=== PATIENT | female | born 1955 | race Caucasian/White ===

== ENCOUNTER 2023-02-16 08:25 | Outpatient (REF) | payer MEDICARE, SELFPAY ==
--- NOTE | ~2023-02-16 | MM_ITS ---
EXAMINATION: MM SCREENING DIGITAL BREAST TOMOSYNTHESIS, BILATERAL CLINICAL INFORMATION: Screening. Asymptomatic. The lifetime risk of breast cancer based on the Tyrer-Cuzick Model is 8%. COMPARISON: Outside mammography 03/17/2021, 03/10/2021, 02/25/2020, 01/15/2019 ([facility]). TECHNIQUE: Digital breast tomosynthesis is performed in both the craniocaudal and mediolateral oblique views along with computer-aided detection (CAD). Synthesized 2D images are generated from the tomosynthesis. FINDINGS: The breasts are heterogeneously dense, which may obscure small masses (ACR BI-RADS breast composition Category c). Parenchymal pattern is similar to prior exams and there is no significant mass or developing density or architectural abnormality. There is a biopsy clip marker again seen mid 9:00 left breast. Scattered bilateral benign punctate round calcifications are again seen. The axilla and skin contours are unremarkable. No significant changes from outside studies. MM/MM tomosynthesis screening BI IMPRESSION: No mammographic evidence of malignancy. ASSESSMENT: BI-RADS 2: Benign RECOMMENDATION: Routine annual mammography screening. This patient's information was entered into a reminder system with a target due date for their next mammogram.
== END 2023-02-16 08:26 | disposition home or self-care (01) ==
LOC: HO.MAMMO 08:25
PROVIDERS: Visit Provider Family Medicine
DX: Z12.31 Encounter for screening mammogram for malignant neoplasm of breast (principal)
CPT/HCPCS: 77063; 77067

== ENCOUNTER 2023-02-16 08:57 | Outpatient (REF) | payer MEDICARE, SELFPAY ==
[2023-02-16 11:07] LABS: Alanine Aminotransferase 27 U/L (0-31); Aspartate Amino Transferase 21 U/L (5-31); Blood Urea Nitrogen 16 mg/dL (9-16); Cholesterol 152 mg/dL; Estimated Glomerular Filt Rate > 60; Glucose Fasting 219 mg/dL (60-99); HDL Cholesterol 40 mg/dL; LDL Cholesterol Calculated 69 mg/dl; Triglycerides 215 mg/dL
[2023-02-16 11:14] LABS: Creatinine Urine 53.33 mg/dL; Microalbumin Urine < 5.0 mg/L
[2023-02-16 11:20] LABS: Estimated Average Glucose 186 mg/dL; Hemoglobin A1c % 8.1 %
[2023-02-16 11:28] LABS: Thyroid Stimulating Hormone 1.21 uIU/mL (0.32-4.0)
== END 2023-02-16 08:58 | disposition home or self-care (01) ==
LOC: HO.10HDL 08:57
PROVIDERS: Visit Provider Family Medicine
DX: E11.9 Type 2 diabetes mellitus without complications (principal); E78.00 Pure hypercholesterolemia, unspecified; E03.9 Hypothyroidism, unspecified; Z79.899 Other long term (current) drug therapy
CPT/HCPCS: 36415; 80061; 82043; 82565; 82947; 83036; 84443; 84450; 84460; 84520

== ENCOUNTER 2023-08-06 09:08 | Outpatient (REF) | payer MEDICARE, SELFPAY ==
[2023-08-06 10:46] LABS: Alanine Aminotransferase 26 U/L (0-31); Aspartate Amino Transferase 20 U/L (5-31); Glucose Fasting 216 mg/dL (60-99)
[2023-08-06 10:52] LABS: Estimated Average Glucose 258 mg/dL; Hemoglobin A1c % 10.6 % (<6.0)
[2023-08-06 11:05] LABS: Creatinine Urine 73.96 mg/dL; Microalbum/Creatinine Ratio Ur 6.7 ug/mg cr (<30)
== END 2023-08-06 09:09 | disposition home or self-care (01) ==
LOC: HO.10HDL 09:08
PROVIDERS: Visit Provider Family Medicine
DX: E11.9 Type 2 diabetes mellitus without complications (principal); E78.00 Pure hypercholesterolemia, unspecified; E03.9 Hypothyroidism, unspecified; Z79.899 Other long term (current) drug therapy
CPT/HCPCS: 36415; 82043; 82550; 82570; 82947; 83036; 84450; 84460

== ENCOUNTER 2023-10-25 10:37 | Outpatient (REF) | payer MEDICARE, SELFPAY ==
[2023-10-25 13:32] LABS: Estimated Average Glucose 214 mg/dL; Hemoglobin A1c % 9.1 % (<6.0)
[2023-10-25 13:42] LABS: Glucose Fasting 188 mg/dL (60-99)
[2023-10-25 14:06] LABS: Free T4 (Free Thyroxine) 0.96 ng/dL (0.71-1.85); Thyroid Stimulating Hormone 1.46 uIU/mL (0.32-4.0)
== END 2023-10-25 10:38 | disposition home or self-care (01) ==
LOC: HO.10HDL 10:37
PROVIDERS: Visit Provider Family Medicine
DX: E11.9 Type 2 diabetes mellitus without complications (principal); E03.9 Hypothyroidism, unspecified
CPT/HCPCS: 36415; 82947; 83036; 84439; 84443

== ENCOUNTER 2024-02-22 08:30 | Outpatient (REF) | payer MEDICARE, SELFPAY ==
--- NOTE | ~2024-02-22 | MM_ITS ---
EXAMINATION: MM SCREENING DIGITAL BREAST TOMOSYNTHESIS, BILATERAL CLINICAL INFORMATION: Screening. Asymptomatic. COMPARISON: Mammography: This study is compared with prior exams dating back to 2019. TECHNIQUE: Digital breast tomosynthesis is performed in both the craniocaudal and mediolateral oblique views along with computer-aided detection (CAD). Synthesized 2D images are generated from the tomosynthesis. FINDINGS: The breasts are heterogeneously dense, which may obscure small masses (ACR BI-RADS breast composition Category c). There is a focal asymmetry in the hi 6:00 region of the left breast at a middle depth. Additional mammographic and targeted sonographic imaging of this finding is advised. There is a biopsy tissue marker in the upper inner quadrant of the left breast in the anterior depth. This tissue marker lies approximately 1.5 cm anterosuperior to the focal asymmetry and is unrelated to it. In the right breast, there are no significant masses, abnormal calcifications, or other abnormalities. MM/MM tomosynthesis screening BI IMPRESSION: Focal asymmetry of the left breast warrants additional mammographic and targeted sonographic imaging. No mammographic signs of malignancy right breast. ASSESSMENT: BI-RADS BI-RADS 0 - Incomplete: Needs additional Imaging. RECOMMENDATION: 1. Additional views of the left breast. 2. Targeted ultrasound if warranted after review of the additional views. 3. Radiology department staff will contact the patient for additional imaging. Additional Imaging required This examination should not preclude the clinical evaluation of a suspicious palpable abnormality. This patient's information was entered into a reminder system with a target due date for their next mammogram.
== END 2024-02-22 08:31 | disposition home or self-care (01) ==
LOC: HO.MAMMO 08:30
PROVIDERS: PCP Family Medicine; Visit Provider Family Medicine
DX: Z12.31 Encounter for screening mammogram for malignant neoplasm of breast (principal)
CPT/HCPCS: 77063; 77067

== ENCOUNTER → 2024-02-22 08:45 | Outpatient (BNV) | payer MEDICARE, SELFPAY | PROVIDERS: PCP Family Medicine; Visit Provider Radiology Diagnostic Radiology | DX: Z12.31 Encounter for screening mammogram for malignant neoplasm of breast (principal) | CPT/HCPCS: 77063; 77067 ==

== ENCOUNTER 2024-04-07 09:34 | Outpatient (REF) | payer MEDICARE, SELFPAY ==
[2024-04-07 11:00] LABS: Estimated Average Glucose 189 mg/dL; Hemoglobin A1c % 8.2 % (<6.0)
[2024-04-07 11:16] LABS: Glucose Fasting 142 mg/dL (60-99)
== END 2024-04-07 09:35 | disposition home or self-care (01) ==
LOC: HO.10HDL 09:34
PROVIDERS: Visit Provider Family Medicine
DX: E11.9 Type 2 diabetes mellitus without complications (principal)
CPT/HCPCS: 36415; 82947; 83036

== ENCOUNTER 2024-05-14 13:18 | Outpatient (REF) | payer MEDICARE, SELFPAY ==
--- NOTE | ~2024-05-14 | MM_ITS ---
EXAMINATION: MM DIAGNOSTIC DIGITAL BREAST TOMOSYNTHESIS, LEFT US BREAST LIMITED, LEFT MAMMOGRAPHY: CLINICAL INFORMATION: Diagnostic exam: Focal asymmetry in the left breast 6:00 axis anterior one third seen on screening exam. Unknown, patient has history of remote lumpectomy in the 6:00 region of the left breast anterior one third a long time ago . (Patient is not a good historian). Prior reports from [facility] 02/25/2020 and 01/15/2019 state prior lumpectomy left breast for breast CA in 2014. COMPARISON: Mammography: 02/22/2024, 02/16/2023 ([facility] [place] 02/15/2021, 02/25/2020, 01/15/2019 ([facility]) TECHNIQUE: Digital breast tomosynthesis is performed in the following views: Full field left mediolateral view, and 3-D Spot compression left CC and MLO views. Computer-aided diagnosis was used for this study. FINDINGS: The breasts are heterogeneously dense, which may obscure small masses (ACR BI-RADS breast composition Category c). Persistent area of architectural distortion appears related to the scar marker in the 6:00 axis of the left breast from prior lumpectomy. No central mass or suspicious calcifications associated. This has the appearance stable post benign scarring, unchanged from prior exams. We will evaluate this with ultrasound. There is a Q shaped biopsy clip in the upper inner left breast, middle one third, from prior benign biopsy. There are a few punctate dystrophic appearing calcifications in the retroareolar region, which are loosely grouped and not suspicious. These are stable. No additional suspicious findings in the left breast which can be discriminated from the heterogeneously dense an somewhat nodular breast tissue. ULTRASOUND: CLINICAL INFORMATION: As above. COMPARISON: None relevant. TECHNIQUE: Targeted sonographic evaluation was performed using a high frequency linear transducer. Attention to the 6:00 axis was given left breast. Selected archived documentation. FINDINGS: LEFT BREAST: There is a fairly classic region of linear scarring in the 6:00 axis left breast, anterior one third, leading up to the skin where there is a visible scar. There is no definable mass, cystic abnormality, abnormal color Doppler flow, or abnormal shadowing beyond what would be expected for normal scarring. These findings are benign and stable. MM/MM tomosynthesis added views L IMPRESSION: There are no findings suspicious for malignancy in either breast. There is benign scarring in the 6:00 axis of the left breast, resulting in the stable appearance of architectural distortion which is unchanged from numerous prior exams. This finding is benign. Recommendation resume routine annual screening mammography. OVERALL ASSESSMENT: Mammography: BI-RADS 2 - Benign Findings Ultrasound: BI-RADS 2 - Benign Findings RECOMMENDATION: 1 year F/U This patient's information was entered into a reminder system with a target due date for their next mammogram. Electronically signed by: Ney Lopez MD 05/14/2024 04:43 PM EDT
== END 2024-05-14 13:19 | disposition home or self-care (01) ==
LOC: HO.MAMMO 13:18
PROVIDERS: PCP Family Medicine; Visit Provider Family Medicine
DX: N64.89 Other specified disorders of breast (principal)
CPT/HCPCS: 76642; 77061; 77065

== ENCOUNTER → 2024-05-14 13:30 | Outpatient (BNV) | payer MEDICARE, SELFPAY | PROVIDERS: PCP Family Medicine; Visit Provider Radiology Diagnostic Radiology | DX: N64.89 Other specified disorders of breast (principal) | CPT/HCPCS: 76642; 77065; G0279 ==

== ENCOUNTER 2024-05-26 08:18 | Outpatient (REF) | payer MEDICARE, SELFPAY ==
[2024-05-26 10:51] LABS: Estimated Average Glucose 151 mg/dL; Hemoglobin A1c % 6.9 % (<6.0)
[2024-05-26 11:21] LABS: Creatinine Urine 152.72 mg/dL; Microalbum/Creatinine Ratio Ur 12.4 ug/mg cr (<30)
[2024-05-26 11:28] LABS: Alanine Aminotransferase 20 U/L (0-31); Aspartate Amino Transferase 17 U/L (5-31); Blood Urea Nitrogen 13 mg/dL (9-16); Estimated Glomerular Filt Rate > 60; Glucose Fasting 140 mg/dL (60-99)
[2024-05-26 11:49] LABS: Free T4 (Free Thyroxine) 1.18 ng/dL (0.71-1.85); Thyroid Stimulating Hormone 0.14 uIU/mL (0.32-4.0)
== END 2024-05-26 08:19 | disposition home or self-care (01) ==
LOC: HO.10HDL 08:18
PROVIDERS: Visit Provider Family Medicine
DX: E11.9 Type 2 diabetes mellitus without complications (principal); E03.9 Hypothyroidism, unspecified; E78.00 Pure hypercholesterolemia, unspecified; Z79.899 Other long term (current) drug therapy
CPT/HCPCS: 36415; 82043; 82550; 82565; 82570; 82947; 83036; 84439; 84443; 84450; 84460; 84520

== ENCOUNTER 2024-08-12 11:33 | Outpatient (REF) | payer MEDICARE, SELFPAY ==
[2024-08-12 13:00] LABS: Free T4 (Free Thyroxine) 1.14 ng/dL (0.71-1.85); Thyroid Stimulating Hormone 0.11 uIU/mL (0.32-4.0)
--- OUTSIDE RECORDS SUMMARY | 2024-08-13 20:45 | XMS_ITS | Continuity of Care Document ---
Author Organization [facility] [address] [place] [address] Phone [phone] Care Team Providers Care Ship Unloader Name Role Phone Willi Wei M.D. Care Team Information Receive r [phone] Problems Active Problems Provider Date Obesity FRANK Liu Onset: 2023 Hypothyroidism FRANK Liu Onset: 2023 Pure hypercholesterolemia FRANK Liu Ons et: 02/21/2024 Irritable bowel syndrome FRANK Liu Onse t: 02/21/2024 Polyp of colon FRANK Liu Onset: 2023 Type 2 diabetes mellitus FRANK Liu Onse t: 02/21/2024 Obstructive sleep apnea syndrome FRANK Liu Onset: 02/21/2024 Social History Type Date Description Comments Sex Unknown ETOH Use Rarely consumes alcohol Tobacco Use Start: Unknown End: Unknown Patient is a former smoker Allergies and adverse reactions Active Allergies Criticality Reaction Severity Comments Date Jardiance Unable to assess criticality 02/21/2024 Medications Active Medications SIG Qnty Indications Order ing Provider Date Mounjaro2.5mg/0.5ML Solution Pen-Inject Inject 2.5MG Subcutaneously Once A Week as Directed For 4 Weeks DX: E11.9 2ml E11.9 Deena Herrera M.D. 06/06/2024 Xafjdbtcp8sv Tablets take 1 tablets by mouth every morning 90tabs Deena Herrera M.D. 02/25/2024 Levothyroxine Qjparx210waz Tablets Take 1 Tablet By Mouth Every Day Willi Wei M.D. Atorvastatin Eyffcql56nn Tablets Take 1 Tablet By Mouth Everyday AT Bedtime Willi Wei M.D. Lwfpbgvhichu06qbi Capsules Take 1 Capsule By Mouth Twice A Day FRANK Cavazos Metformin [id number] Tablets Take 1 Tablet By Mouth Twice A Day Willi Wei M.D. Zhwfoigdzulpe064wg Tablets Take 1 Tablet By Mouth Twice A Day Unknown Buspirone CCM86br Tablets Take 1 Tablet By Mouth Twice A Day Unknown Bupropion Hydrochloride ER (XL)150mg Tablets ER 24HR Take 1 Tablet By Mouth Every Day In The Morning Unknown Venlafaxine HCL ER75mg Caps ER 24HR Take 1 Capsule By Mouth Once A Day With 150 MG Capsule For Total Dose = 225 MG. Unknown Venlafaxine HCL XI151ly Caps ER 24HR Take 1 Capsule By Mouth Once A Day With 75 MG Capsule For Total Dose = 225 MG. Unknown Quetiapine Ogconzfs045si Tablets Please See Attached For Detailed Directions Unknown History Medications Ljkxhyis4mk/0.5ML Solution Pen-Inject 1 injection every week as directed 2ml Deena Herrera M.D. 05/27/2024 - 06/12/2024 Mounjaro2.5mg/0.5ML Solution Pen-Inject Inject 2.5MG Subcutaneously Once A Week as Directed For 4 Weeks DX: E11.9 2ml E11.9 Deena Herrera M.D. 02/21/2024 - 05/27/2024 Vital Signs Date Vital Result Comment 06/06/2024 8:04am BP Systolic 100 mmHg BP Diastolic 56 mmHg Heart Rate 88 /min Height 66 inches 5'6 Weight 165.38 lb BMI (Body Mass Index) 26.7 kg/m2 Results Test Acquired Date Facility Test Result H/L Range N ote Laboratory test finding 06/06/2024 Inhouse Hemoglobin A1c 6.5% Glucose Fingerstick 146 Laboratory test finding 02/21/2024 [facility] Mark-65 Autoantibody <5.0 U/mL 0.0-5.0 Laboratory test finding 02/21/2024 Inhouse Hemoglobin A1c 8.6% Glucose Fingerstick 221 Medical Devices Description No Information Available Encounters Type Date Location Provider Dx Diagnosis Office Visit 06/06/2024 8:00a Main Office FRANK Liu E11.9 Type 2 diabet es mellitus without complications Assessments Date Code Description Provider 06/06/2024 E11.9 Type 2 diabetes mellitus wit hout complications FRANK Liu Plan of Treatment Future Appointment(s):* 10/02/2024 8:45 am - FRANK Liu at Main Office 06/06/2024 - FRANK Liu* E11.9 Type 2 diabetes mellitus without complications* New Medication:* Mounjaro 2.5 mg/0.5ML Functional Status Description No Information Available Mental Status Description No Information Available Referrals Description No Information Available
== END 2024-08-12 11:34 | disposition home or self-care (01) ==
LOC: HO.LAB 11:33
PROVIDERS: PCP Family Medicine; Visit Provider Family Medicine
DX: E03.9 Hypothyroidism, unspecified (principal)
CPT/HCPCS: 36415; 84439; 84443

== ENCOUNTER 2025-02-27 08:12 | Outpatient (REF) | payer MEDICARE, SELFPAY ==
--- OUTSIDE RECORDS SUMMARY | 2025-02-27 08:16 | XMS_ITS | Continuity of Care Document ---
Author Organization [facility] [address] [place] [address] Phone [phone] Care Team Providers Care Product Marketing Coordinator Name Role Phone Cade Fuller M.D. Care Team Information Receive r [phone] Problems Active Problems Provider Date Obesity FRANK Liu Onset: 2023 Hypothyroidism FRANK Liu Onset: 2023 Pure hypercholesterolemia FRANK Liu Ons et: 02/21/2024 Irritable bowel syndrome FRANK Liu Onse t: 02/21/2024 Polyp of colon FRANK Liu Onset: 2023 Type 2 diabetes mellitus FRANK Liu Onse t: 02/21/2024 Obstructive sleep apnea syndrome FRANK Liu Onset: 02/21/2024 Social History Type Date Description Comments Sex Female Sex Unknown ETOH Use Rarely consumes alcohol [...] E11.9 2ml E11.9 Deena Herrera M.D. 06/06/2024 Levothyroxine Sbmuil760itc Tablets Take 1 Tablet By Mouth Every Day Willi Wei M.D. Atorvastatin Vbchqwp83rj Tablets Take 1 Tablet By Mouth Everyday AT Bedtime Willi Wei M.D. Ofetyecsswoq26epk Capsules Take 1 Capsule By Mouth Twice A Day FRANK Cavazos Metformin [id number] Tablets Take 1 Tablet By Mouth Twice A Day Willi Wei M.D. Usyseeksrvxwj598wh Tablets Take 1 Tablet By Mouth Twice A Day Unknown Buspirone INY18pb Tablets Take 1 Tablet By Mouth Twice A Day Unknown Bupropion Hydrochloride ER (XL)150mg Tablets ER 24HR Take 1 Tablet By Mouth Every Day In The Morning Unknown Venlafaxine HCL ER75mg Caps ER 24HR Take 1 Capsule By Mouth Once A Day With 150 MG Capsule For Total Dose = 225 MG. Unknown Venlafaxine HCL NH887vy Caps ER 24HR Take 1 Capsule By Mouth Once A Day With 75 MG Capsule For Total Dose = 225 MG. Unknown Quetiapine Zqhrzuii565ud Tablets Please See Attached For Detailed Directions Unknown History Medications Pbasahkn8ft/0.5ML Solution Pen-Inject 1 injection every week as directed 2ml Deean Herrera M.D. 05/27/2024 - 06/12/2024 Vital Signs Date Vital Result Comment 10/02/2024 8:55am BP Systolic 100 mmHg BP Diastolic 60 mmHg Heart Rate 92 /min Height 66 inches 5'6 Weight 164.50 lb BMI (Body Mass Index) 26.5 kg/m2 Results Test Acquired Date Facility Test Result H/L Range N ote Hemoglobin A1c 10/02/2024 Inhouse Hemoglobin A1c 6.7% Glucose Fingerstick 10/02/2024 Inhouse Glucose Fingerstick 120 Hemoglobin A1c 06/06/2024 Inhouse Hemoglobin A1c 6.5% Glucose Fingerstick 06/06/2024 Inhouse Glucose Fingerstick 146 Mark-65 Autoantibody 02/21/2024 [facility] Mark-65 Autoantibody <5.0 U/mL 0.0-5.0 Hemoglobin A1c 02/21/2024 Inhouse Hemoglobin A1c 8.6% Glucose Fingerstick 02/21/2024 Inhouse Glucose Fingerstick 221 Medical Devices Description No Information Available Encounters Type Date Location Provider Dx Diagnosis Office Visit 10/02/2024 8:45a Main Office FRANK Liu E11.9 Type 2 diabet es mellitus without complications E78.00 Pure hypercholestero lemia, unspecified Assessments Date Code Description Provider 10/02/2024 E11.9 Type 2 diabetes mellitus wit hout complications FRANK Liu 10/02/2024 E78.00 Pure hypercholesterolemia, u nspecified FRANK Liu Plan of Treatment Future Appointment(s):* 04/24/2025 8:30 am - Dori Quesada NP at Main Office 06/06/2024 - FRANK Liu* E11.9 Type 2 diabetes mellitus without complications* New Medication:* Mounjaro 2.5 mg/0.5ML Functional Status Description No Information Available Mental Status Description No Information Available Referrals Description No Information Available
== END 2025-02-27 08:13 | disposition home or self-care (01) ==
LOC: HO.MAMMO 08:12
PROVIDERS: PCP Hospitalist; Visit Provider Family Medicine
DX: Z12.31 Encounter for screening mammogram for malignant neoplasm of breast (principal)
CPT/HCPCS: 77063; 77067

== ENCOUNTER → 2025-02-27 08:30 | Outpatient (BNV) | payer MEDICARE, SELFPAY | PROVIDERS: PCP Hospitalist; Visit Provider Internal Medicine | DX: Z12.31 Encounter for screening mammogram for malignant neoplasm of breast (principal) | CPT/HCPCS: 77063; 77067 ==

== ENCOUNTER 2025-02-27 08:59 | Outpatient (REF) | payer MEDICARE, SELFPAY ==
[2025-02-27 10:14] LABS: Alanine Aminotransferase 22 U/L (0-31); Albumin Level 4.8 g/dL (3.5-5.0); Alkaline Phosphatase 72 U/L (39-117); Anion Gap 14 (12-20); Aspartate Amino Transferase 26 U/L (5-31); Bilirubin Total 0.3 mg/dL (0.0-1.0); Blood Urea Nitrogen 17 mg/dL (9-16); Calcium 10.4 mg/dL (8.4-10.2); Carbon Dioxide 21 mmol/L (22-29); Chloride 107 mmol/L (96-108); Cholesterol 146 mg/dL (<200); Estimated Glomerular Filt Rate > 60; Glucose Random 172 mg/dL (60-115); HDL Cholesterol 43 mg/dL (>40); LDL Cholesterol Calculated 83 mg/dL (<100); Potassium 4.2 mmol/L (3.3-5.1); Sodium 138 mmol/L (135-145); Total Protein 7.1 g/dL (6.5-8.0); Triglycerides 100 mg/dL (<150)
[2025-02-27 10:17] LABS: Estimated Average Glucose 134 mg/dL; Hemoglobin A1c % 6.3 % (<6.0)
[2025-02-27 10:34] LABS: Free T4 (Free Thyroxine) 1.17 ng/dL (0.71-1.85); Thyroid Stimulating Hormone 0.15 uIU/mL (0.32-4.0)
[2025-02-27 11:07] LABS: Creatinine Urine 237.17 mg/dL; Microalbum/Creatinine Ratio Ur 8.4 ug/mg cr (<30)
== END 2025-02-27 09:00 | disposition home or self-care (01) ==
LOC: HO.10HDL 08:59
PROVIDERS: Visit Provider Hospitalist
DX: E11.8 Type 2 diabetes mellitus with unspecified complications (principal); E03.9 Hypothyroidism, unspecified
CPT/HCPCS: 36415; 80053; 80061; 82043; 82570; 83036; 84439; 84443